=== PATIENT | male | born 1950 | race Caucasian/White ===

== ENCOUNTER 2017-01-01 06:45 | Day surgery (SDC) | payer OTHER, MEDICARE ==
[~2017-01-01] VITALS: Ht 180.3 cm; Wt 109.5 kg
[~2017-01-01 06:45] MED LIST: ALLO300T2 PO; CeFAZolin 2 Gm/50 mL D5W IV Premix IV ONE; LISI10TA PO; NAPR220C11 PO
[2017-01-01] MEDS ORDERED: fentaNYL-PF 50 mCg/mL 2 mL Inj ONE (06:46)
[2017-01-01] MEDS ORDERED: Propofol 10,000 mCg/mL 20 mL Inj ONE (06:46)
[2017-01-01] MEDS: Lactated Ringer's 1,000 ML IV SCH ×2 (06:57→09:16)
[2017-01-01] MEDS ORDERED: CeFAZolin Inj 2 gm / 50mL D5W IV ONE (07:06)
[2017-01-01 07:26] VITALS: BP 133/67; PULSE 73; RESP 18; O2SAT 95
[2017-01-01] MEDS ORDERED: Lactated Ringer's 500 ML IV PRN (09:02)
[2017-01-01] MEDS ORDERED: Lactated Ringer's 1,000 ML IV SCH (09:02)
--- NOTE | 2017-01-01 09:02 | PCM.HPANE ---
Patient Data Date of Service: Jan 01, 2017 (0900) Surgeon Admitting Provider: Attending Provider:Sudha Li DPM Primary Care Physician:Matt Do MD Other Provider:Balaji Hernandez Anesthesia Reason for Visit Left Foot Toe Distal Hammertoe Ht/WT & BMI Height (Feet): 5 Height (Inches): 11.00 Weight (Kilograms): 109.5 Body Mass Index 33.00 Allergies Coded Allergies: No Known Allergies (Unverified , 12/30/16) Past Anesthesia History Anesthesia History: Denies:: Anesthesia Reactions, Malignant Hyperthermia Diabetes History Hx Diabetes?: No MRSA MRSA: No Medications Hypertension Medication: Yes (LISINOPRIL) Home Meds Incl Beta Roberto: No Reported Medications Lisinopril 10 Mg [id number] Mg PO DAILY 30 Days Ref 0 12/30/16 Allopurinol 300 Mg [id number] Mg PO DAILY Ref 0 12/30/16 Naproxen Sodium (Aleve)220 Mg Norggeq710-602 Mg PO DAILY 12/30/16 History History of ENT Problems?: Yes Denture Type: Full- Upper Teeth Condition: Missing Teeth Hx of Heart Problems?: Yes Cardiovascular History: Positive for:: Hypertension Denies:: Irregular Heartbeat (HX OF BENIGN PVC'S) Hx of Respiratory Problem?: No Respiratory History: Denies:: Use of C-PAP Machine Hx Neurologic Problems?: No Hx of GI Problems?: Yes Gastrointestinal History: Positive for:: Gall Bladder Disease (S/P BRAD) Hx of Problems?: No Male Hx: Denies:: Prostate Problems Scrotal Mass Testicular Surgery Skin History: Denies:: History Skin Disorders? Pressure Ulcers Hx Musculoskeletal Problems?: Yes Musculoskeletal History: Positive for:: Musculoskeletal Trauma (S/P RT KNEE SCOPE) Hx of Psycho/Social Problems?: No Hx Surgeries?: Yes (BRAD,KNEE SCOPE) Hx Any Other Health Problems?: Yes Other History: Denies:: Cancer Endocrine Disease Hospitalization Thyroid Disease Hx Diabetes: No Hx Alcohol Use: YesHx Substance Use: NoHave You Smoked inLast 12 mo: No Stop/Bang S-Snoring: Do You Snore Loudly: No T-Tired: feel tired, fatigued: No O-Obsered: Observed not breath: No P-Blood Pressure: treated: Yes B- Body Mass Index > 35 kg/m2: No A- Age over 50: Yes N- Neck Large Circumference: Yes G- Gender Male: Yes DON Total Score: 4 DON Risk Assessment: Low Risk, <3 Yes Risk Assessment Category Category 1A: Patient has history of documented sleep apnea, and HAS NOT received any narcotic, sedative or anesthesia administration during this stay. Category 1B: Patient has history of documented sleep apnea, and HAS received any narcotic , sedative or anesthesia administration during this stay Category 2: Patient has SUSPECTED Obstructive Sleep Apnea, and HAS received any narcotic , sedative or anesthesia administration during this stay. Category 3: Patient has SUSPECTED Obstructive Sleep Apnea and HAS NOT received narcotic, sedative or anesthesia administration during this stay. Category 4: Outpatient in Procedural Areas with known sleep apnea or who screen positive for High Risk via the STOP/BANG questionnaire. Exam Exam Vital Signs Vital Signs Date Time Temp Pulse Resp B/P Pulse Ox O2 Delivery O2 Flow Rate FiO2 01/01/17 07:26 36.0 73 18 133/67 95 Room Air General Appearance: Alert, Oriented X3 HEENT/AIRWAY: MP 1 (missing teeth, none loose) Lungs: Clear to Auscultation Heart: Exam Unremarkable Meds/Labs/Diagnostics Admission Meds Current Medications Lactated Ringer's (Lr) 1,000 ml @ 120 mls/hr Q8H20M IV Last administered on t 06:57; Start 01/01/17 at 05:00; Stop 01/01/17 at 13:19 Plan Impression Patient chart reviewed, patient interviewed and anesthestic plan with risks, benefits, and alternatives discussed, and informed consent obtained. NPO Status: 11pm ASA Physical Status: ASA2 Mod Systemic Disease Anesthetic Plan: MAC Bene/Risks/Altern/Consents: Yes HP Complete Prior to Induction: Yes Luis Dooley MD Jan 01, 2017 09:02
[2017-01-01] MEDS ORDERED: EPHEDrine Sulfate 50 mg/mL Inj IVPUSH PRN (09:05)
[2017-01-01] MEDS ORDERED: fentaNYL-PF 50 mCg/mL 2 mL Inj IVPUSH PRN (09:05)
[2017-01-01] MEDS ORDERED: Ondansetron 2 mg/mL 2 mL Inj IVPUSH PRN (09:05)
[2017-01-01] MEDS ORDERED: Dexamethasone 4 mg/mL Inj IVPUSH PRN (09:05)
[2017-01-01] MEDS ORDERED: Phenylephrine 10,000 mCg/mL Inj IVPUSH PRN (09:05)
[2017-01-01] MEDS ORDERED: MetoCLOpramide 5 mg/mL 2 mL Inj IVPUSH PRN (09:05)
[2017-01-01] MEDS ORDERED: HYDROmorphone 1 mg/mL Inj IVPUSH PRN (09:05)
[2017-01-01] MEDS ORDERED: Bupivacaine-MPF 0.5% 30 mL Inj INFILTRATE ONE (09:41)
[2017-01-01 10:35] VITALS: BP 123/67; PULSE 70; RESP 18; O2SAT 95
--- NOTE | 2017-01-01 10:37 | PCM.ANEP2 ---
Post Anesthesia Evaluation ASA/CMS Post Anesthesia VS in Patient's Normal Range?: Yes Resp Stable; Airway Patent?: Yes CV Function & Hydration Stable: Yes Mental Status Recovered?: Yes Pain control Satisfactory?: Yes N/V Control Satisfactory?: Yes Luis Dooley MD Jan 01, 2017 10:37
--- NOTE | 2017-01-01 10:37 | PCM.ANEP1 ---
Post Anesthesia Phase 1 PACU Phase 1 Assessment Date of Service: Jan 01, 2017 (0900) Vital Signs 94%, 66, 16, 36.7, 123/67 Vital Signs Date Time Temp Pulse Resp B/P Pulse Ox O2 Delivery O2 Flow Rate FiO2 01/01/17 07:26 36.0 73 18 133/67 95 Room Air Anesthetic Administered: MAC Level of Alertness: Awake, talking MOORE's with Equal Strength: Yes Pain: No Nausea or Vomiting: No Oxygen Delivery: Room Air Lungs: Clear to Auscultation Dermatome Level: Full Sensation Summary uneventful MAC Luis Dooley MD Jan 01, 2017 10:37
[2017-01-01 11:14] VITALS: BP 121/49; PULSE 75; RESP 18; O2SAT 94
--- NOTE | 2017-01-01 13:57 | OP ---
[address] [address] OPERATIVE REPORT PATIENT: RAMANDEEP BILLS : 1950 MR#: [id number] ADMIT: 01/01/2017 JOB ID: [id number] DATE OF SURGERY: 01/01/2017 SURGEON: Sudha Li DPM FOOD ASSEMBLER KITCHEN: None. PREOPERATIVE DIAGNOSIS(ES): Painful hammertoe, fourth left toe, and pigmented skin lesion, dorsal third interspace, left foot. POSTOPERATIVE DIAGNOSIS(ES): Painful hammertoe, fourth left toe, and pigmented skin lesion, dorsal third interspace, left foot. PROCEDURE: Distal amputation at the distal interphalangeal joint of 4th left toe and surgical excision of pigmented skin lesion, dorsal third interspace, left foot. ANESTHESIA: Local with IV sedation. HEMOSTASIS: With ankle tourniquet at 250 mmHg. The patient was brought into the operating room and placed in supine position. Three cc of a 1:1 mixture of lidocaine 1% plain and bupivacaine 0.5% plain was administered proximal to the pigmented skin lesion dorsal third interspace as well as around the base of the 4th left toe. An ankle tourniquet was then applied above the medial and lateral malleolus. The foot was then prepped and draped in the usual sterile technique. Anesthesia was tested for and found to be adequate around the fourth toe and third interspace. Attention was then directed to the dorsal aspect of the distal interphalangeal joint fourth left toe. A transverse incision was made from medial to lateral down to the bone of the distal interphalangeal joint. This incision was carried distally from medial to lateral around the distal tip of the toe. It was noted that the 4th toe was rotated in a varus position and there was also soft tissue enlargement of the plantar tuft of the toe. The incision was made plantar to the area of soft tissue that was enlarged. The skin, soft tissue and bone within the incisions was excised and removed in toto. The skin edges of the remaining skin were reapproximated and it was noted that there was excess skin and soft tissue around the medial and lateral margins of the remaining toe. Using a 15 blade, I excise further soft tissue both medially and laterally to remove any dog ears as well as excess skin and soft tissue. I then reapproximated the skin edges and it was noted that here was good alignment. The area of the soft tissue was copiously flushed with lactated Ringer solution. The subcutaneous tissue was closed using 3-0 Vicryl and the skin reapproximated using 4-0 nylon. Attention was then directed to the dorsal aspect of the 3rd interspace. It was noted that there was a skin lesion measuring approximately 1.2 cm x 1 cm which was pinkish-purple discolored as well as lobulated with peduncle. Using a 15 blade, I made two semi-elliptical incisions measuring approximately 3 cm total in length on either side of the mass. The skin including the mass was then excised and removed in toto. The mass was sent to Pathology in formalin. The distal tip of the toe was also sent to Pathology for gross and microscopic exam. Attention was then directed back to the 3rd interspace where the area was copiously flushed with lactated Ringer solution. The subcutaneous tissue was closed using 3-0 Vicryl and the skin reapproximated using 4-0 nylon. A total of 1 cc of dexamethasone, 4 mg/mL, was injected around both incision sites Five cc of a 1:1 mixture of lidocaine 1% and Marcaine 0.25% was also administered prior to the dressing being applied. The dressing over the incision consisted of bacitracin, Alejandro silk, 2x2 moistened with lactated Ringer solution, dry 2x2 gauze, Conform and a 3-inch Andrew wrap. The tourniquet was then deflated. It was noted that the distal tip of the 4th toe was pink in color. The patient left the operating room with vital signs stable and vascular status intact to all toes of the right foot. The patient is to be discharged home once he is medically stable. He is follow up with Dr. Li in her office in three days. SOLIS
--- NOTE | 2017-01-07 14:04 | PATH ---
SURGICAL PATHOLOGY Attending Physician:Sudha Li DPM CASE STATUS: Signed Out PATIENT NAME: RAMANDEEP BILLS PID: [id number] : 1950 DATE COLLECTED:01/01/2017 22:56 SPECIMEN: 1: Extremity Amputation, Non-Traumatic 2: Skin, biopsy CLINICAL HISTORY: PAINFUL HAMMERTOE FOURTH LEFT TOE 1). LEFT FOURTH TOE 2). BENIGN SKIN LESION FINAL DIAGNOSIS: 1.LEFT FOURTH TOE, AMPUTATION: TOE WITH AREA OF MARKED HYPERKERATOSIS. NO ULCER IDENTIFIED. NO EVIDENCE OF NEOPLASIA. 2.BENIGN SKIN LESION, SITE NOT DESIGNATED: POLYPOID INTRADERMAL MELANOCYTIC NEVUS. THE DEEP MARGIN IS NEGATIVE FOR NEOPLASM. ICD10 CODE L85.9 D22.9 GROSS DESCRIPTION: The specimens are received in formalin, labeled with the patient's name, and sublabeled as the following: (1) left fourth toe; (2) benign skin lesion. (1) The specimen consists of a disarticulated toe (1.3 cm AP, 1.6 cm SI, 2.7 cm ML). The toenail is present. A galan-yellow thickened area (0.7 x 0.6 cm) is 0.1 cm from the central inferoanterior resection margin. The surrounding skin is pale galan and unremarkable. The underlying bone is hard and cannot be sliced with a scalpel. The bone cut is galan and unremarkable. Ink code: green-medial; blue-lateral. Section code: (1A) skin and soft tissue resection margins; (1B) bone, bisected, entirely submitted; (1C) ulcer, automotive leasing sales representative. Note: The bone sections have been decalcified. Additional sections: (1D) remaining ulcer, entirely submitted. 01/05/17 JM (2) The specimen consists of an unoriented ellipse of skin (3.2 x 0.7 x 0.1 cm). The skin is galan and contains a galan rubbery polypoid nodule (1.1 x 0.8 x 0.7 cm) with a focally bright white cut surface located 0.1 cm from the closest peripheral resection margin. Ink code: blue-resection margin. Section code: (2A) tips; (2B-2C) remaining ellipse of skin, serial sectioned from tip to tip, 4 slices in each cassette. Specimen entirely submitted. 01/02/17 ZAK MICRO DESCRIPTION: See diagnosis. ICD-9 CODES: CPT CODES: 1: 84566, 90757 2: 74352 Electronically Signed Out Stephanie Clifford MD [facility] [address], [place] [address] Technical component performed at [facility], [facility] [address], [place], [address]
== END 2017-01-01 23:59 | disposition home or self-care (01) ==
LOC: SAS 06:45
PROVIDERS: ATTEND Podiatrist
DX: M20.42 Other hammer toe(s) (acquired), left foot (principal); D22.72 Melanocytic nevi of left lower limb, including hip; I10 Essential (primary) hypertension; I49.9 Cardiac arrhythmia, unspecified; I49.3 Ventricular premature depolarization; M10.9 Gout, unspecified; M17.0 Bilateral primary osteoarthritis of knee; M54.40 Lumbago with sciatica, unspecified side
CPT/HCPCS: 28039; 28825; J0690; J2250; J3010; J7120